=== PATIENT | female | born 1995 | race African-American/Black ===

== ENCOUNTER 2019-06-04 02:10 | Emergency (ER) | payer MEDICAID ==
[~2019-06-04] VITALS: Ht 165.1 cm; Wt 61.0 kg
[2019-06-04 03:44] VITALS: BP 145/85
[2019-06-04] MEDS ORDERED: ASPIRIN 81MG TABLET PO ONE (03:45)
[2019-06-04 03:49] LABS: BASOPHILS % 0.4 % (0.0-2.0); EOSINOPHILS % 1.3 % (0.0-5.0); HEMATOCRIT. 34.3 % (36.0-48.0); HEMOGLOBIN. 11.3 g/dL (12.0-16.0); LYMPHOCYTES % 30.2 % (20.0-50.0); MEAN CORPUSCULAR HEMOGLOBIN 32.2 pg (28.0-32.0); MEAN CORPUSCULAR VOLUME 97.3 fL (81.0-99.0); MEAN PLATELET VOLUME 8.6 fl (7.4-10.4); NEUTROPHILS % 61.1 % (40.0-76.0); PLATELET 252 x1000/uL (130-400); RED BLOOD CELL COUNT 3.52 mill/uL (4.2-5.4); RED CELL DISTRIBUTION WIDTH 13.6 % (11.6-14.6)
[2019-06-04 04:00] LABS: CHLORIDE 109 mEq/L (98-107)
[2019-06-04] MEDS ORDERED: HYDROCODONE/ACETAMINOPHEN 10/325MG TABLET PO ONE (04:00)
== END 2019-06-04 05:33 | disposition left against medical advice (07) ==
LOC: ER 02:10
DX: I45.6 Pre-excitation syndrome (principal); R07.89 Other chest pain; R05 Cough; I44.7 Left bundle-branch block, unspecified; Z88.6 Allergy status to analgesic agent
CPT/HCPCS: 36415; 71045; 80053; 83880; 84484; 85025; 93005; 99285